=== PATIENT | male | born 1990 | race Two or more races ===

== ENCOUNTER 2024-10-31 22:13 | Emergency (ER) | payer MEDICARE, MEDICAID, SELFPAY ==
[2024-10-31 22:21] VITALS: BP 125/77; PULSE 77; TEMP 37.1; O2SAT 96; BMI 35.7
--- NOTE | 2024-10-31 22:49 | ED_ITS ---
HPI - Abdominal Pain General Chief Complaint: Abdominal Pain Stated Complaint: ABD PAIN Time Seen by Provider: 10/31/24 22:14 Source: patient Mode of arrival: walk-in Limitations: no limitations History of Present Illness HPI narrative: This 34-year-old male presents for evaluation of intermittent sharp stabbing pain in his left upper quadrant of his abdomen that at times goes into his back. He states it hurts somewhat when he takes a deep breath. He denies any nausea. He states he had some bloody diarrhea several days ago because he is lactose intolerant and ate something with milk in it. He also thinks he is developing allergies to wheat and corn. He has not had any fever or cough. He denies any chest pain or shortness of breath. He does admit to tobacco use. He has no lower extremity pain or swelling. He denies any history of alcohol use. He has a history of schizophrenia but denies he has been in any new or different medications since 2014. Related Data Home Medications ?Medication ?Instructions ?Recorded ?Confirmed aripiprazole lauroxil 1,064 mg/3.9 1,064 mg IM .1 every 2 months 10/31/24 10/31/24 mL suspension,ext.rel IM syringe (Aristada) benztropine 1 mg tablet 1 mg PO .HS 10/31/24 10/31/24 divalproex 500 mg tablet,delayed 500 mg PO .HS 10/31/24 10/31/24 release risperidone 1 mg tablet 1 mg PO DAILY 10/31/24 10/31/24 Allergies Allergy/AdvReac Type Severity Reaction Status Date / Time antibiotics Allergy rectal Uncoded 10/31/24 22:27 bleeding propanalo Allergy Hives Uncoded 10/31/24 22:26 Review of Systems ROS Status of ROS 10 or more systems reviewed and unremark able except as noted in history and below PFSH PFSH Social History Little interest or pleasure in doing things: not at all Feeling down, depressed, or hopeless: not at all Exam Narrative Exam Narrative: Vital signs and Nursing Notes reviewed: Patient is afebrile with a normal pulse, normal blood pressure, he is not hypoxic with pulse ox of 96% on room air General: Awake, alert, oriented, no acute distress, lying comfortably on the stretcher, he moves easily about the stretcher with no sign of distress HEENT: Normocephalic atraumatic, mucous membranes are moist and pink, eyes are clear, normal conjunctiva, vision is grossly intact, posterior pharynx is normal in appearance, no scleral icterus Neck: Supple, no meningeal signs, no anterior or posterior cervical lymphadenopathy Chest: Lungs are clear to auscultation with good air entry, there is no wheezing rhonchi or rales appreciated no accessory muscle use, patient is speaking in complete sentences-no chest wall tenderness to palpation CVS: Regular rate and rhythm S1-S2, no murmurs rubs or gallops, pulses are brisk and equal bilaterally ABD: Soft, nondistended, nontender, no rebound guarding or rigidity, bowel sounds are normal, no pulsatile masses appreciated, I am unable to appreciate any tenderness to deep palpation in the epigastrium, right upper quadrant or lef t upper quadrant. Left lower quadrant is also nontender. No pulsatile masses appreciated Extremities: Moving all extremities, no lower extremity tenderness or swelling noted, negative Homans' sign, pulses are brisk and equal bilaterally Skin: Normal in appearance without rash,pallor, petechiae or purpura Neuro: No focal deficits Constitutional Vital Signs, click to edit/add: Last Vital Signs Temp 98.8 F 10/31/24 22:21 Pulse 77 10/31/24 22:21 Resp 16 10/31/24 22:21 BP 125/77 10/31/24 22:21 Pulse Ox 96 10/31/24 22:21 O2 Del Method Room Air 10/31/24 22:21 Course Vital Signs Vital signs: Vital Signs Temperature 98.8 F 10/31/24 22:21 Pulse Rate 77 10/31/24 22:21 Respiratory Rate 16 10/31/24 22:21 Blood Pressure 125/77 10/31/24 22:21 Pulse Oximetry 96 10/31/24 22:21 Oxygen Delivery Method Room Air 10/31/24 22:21 Temperature 98.8 F 10/31/24 22:21 Pulse Rate 77 10/31/24 22:21 Respiratory Rate 16 10/31/24 22:21 Blood Pressure 125/77 10/31/24 22:21 Pulse Oximetry 96 10/31/24 22:21 Oxygen Delivery Method Room Air 10/31/24 22:21 MDM - Abdominal Pain MDM Narrative Medical decision making narrative: This 34-year-old male with history of schizophrenia who has not been on any new medications recently presents for evaluation of left upper quadrant abdominal pain that radiates into his left back at times with a dull aching sensation in his back and intermittent sharp stabbing pain in the left upper quadrant. This is not associated with any nausea vomiting or diarrhea. He has not had a fever. He denies any chest pain or shortness of breath. He did state that at times the pain is worse with deep breathing and the patient is a smoker so a D-dimer as well as workup for abdominal pain was ordered. His D-dimer is normal. He has a normal white count and hemoglobin. Electrolytes are normal. Liver function test and lipase are all normal. D-dimer is normal. CT scan of the abdomen pelvis with IV contrast was ordered and is included in the body of this report. The CT scan does not show any acute findings. Does show some mild diverticulosis but no diverticulitis. No bowel obstruction. Fat containing umbilical hernia. The patient was given a copy of the report. I suggested that he follow-up closely with his family physician as they may want to do a colonoscopy if he continues to had pain but the patient states that he had a colonoscopy a couple weeks ago and that was normal. At this point, with normal labs, normal CT scan and normal colonoscopy I explained to him that he may be having some degree of stool retention in his left upper quadrant and/or bowel spasms. He will be discharged home with a prescription for Colace and Bentyl. Medical Records Medical records narrative: [place] [address] CT Scan Report Signed Patient: ALY HINOJOSA MR#: [id number] : 1990 Acct:[id number] Age/Sex: 34 / M ADM Date: 10/31/24 Loc: ER Attending Dr: Ordering Physician: Mounika Jonas Date of Service: 10/31/24 Procedure(s): CT abdomen pelvis w con Accession Number(s): [id number] cc: ERIC SAMUEL ~ [facility] [place] [address] Patient Name: ALY HINOJOSA MRN: [id number] date: 1990 Sex: M Assigned Patient Location: ER Current Patient Location: ER Accession/Order Number: [id number] Exam Date: 10/31/2024 23:59 Report Date: 11/01/2024 01:14 At the request of: MOUNIKA MARKER Procedure: CT abdomen pelvis w con EXAM: CT abdomen pelvis w con HISTORY: Sharp LUQ abd pain , worse with eating. COMPARISON: CT abdomen pelvis, 03/17/2012. TECHNIQUE: IV contrast enhanced CT imaging of the abdomen and pelvis was performed using 100 mL of Omnipaque 300 intravenous contrast. Sagittal and coronal reconstructions are provided. Dose reduction techniques were achieved by using automated exposure control and/or adjustment of mA and/or kV according to patient size and/or use of iterative reconstruction technique. FINDINGS: CT ABDOMEN: There is mild dependent atelectasis in the posterior lower lobes. The lung bases are otherwise clear. The imaged heart is unremarkable. The liver, gallbladder, pancreas, spleen, adrenal glands, kidneys, stomach, small bowel, aorta and IVC appear within normal limits. There is a small fat-containing umbilical hernia. CT PELVIS: There is a normal appendix on images 94 through 103. The pelvic small bowel bowel loops, prostate and urinary bladder are unremarkable. There is mild colonic diverticulosis, most prominent in the cecum. There are small fat-containing inguinal hernias, right larger than left. No inflammatory fat stranding, free fluid, loculated fluid or free air is seen in the abdomen or pelvis. Several noncalcified nodules are seen in the bilateral buttocks likely related to granulomas. Body wall soft tissues are otherwise unremarkable. No acute osseous abnormality or suspicious bony lesion is seen. CT/CT abdomen pelvis w con IMPRESSION: 1. No acute diagnostic abnormality in the abdomen or pelvis. No specific cause of left upper quadrant pain is identified. 2. Normal appendix. 3. Mild colonic diverticulosis. Electronically authenticated by: SHARRI VENCES Date: 11/01/2024 01:14 Lab Data Labs: Lab Results 10/31/24 Range/Units 23:10 WBC 8.2 (4.0-11.0) 10^3/uL RBC 5.06 (4.70-6.10) 10^6/uL Hgb 15.8 (14.0-18.0) g/dL Hct 46.3 (42.0-54.0) % MCV 91.5 (80.0-94.0) fL MCH 31.2 (25.9-34.0) pg MCHC 34.1 (29.9-35.2) g/dL RDW 12.0 (11.0-15.0) % Plt Count 181 (150-450) 10^3/uL MPV 11.5 (9.5-13.5) fL Neut % (Auto) 53.1 (43.0-75.0) % Lymph % (Auto) 34.3 (20.5-60.0) % [place] % (Auto) 10.3 (1.7-12.0) % Eos % (Auto) 1.8 (0.9-7.0) % Baso % (Auto) 0.4 (0.2-2.0) % Neut # (Auto) 4.4 (1.4-6.5) 10^3/uL Lymph # (Auto) 2.8 (1.2-3.8) 10^3/uL [place] # (Auto) 0.9 H (0.3-0.8) 10^3/uL Eos # (Auto) 0.2 (0.0-0.7) 10^3/uL Baso # (Auto) 0.0 (0.0-0.1) 10^3/uL Abs Immat Gran (auto) 0.01 (0.00-0.03) 10^3/uL Imm/Tot Granulo (auto) 0.1 (0.0-0.5) % D-Dimer 0.22 (<=0.59) mg/L FEU Sodium 138 (136-145) mmol/L Potassium 3.7 (3.5-5.1) mmol/L Chloride 105 (98-107) mmol/L Carbon Dioxide 26.3 (21.0-32.0) mmol/L Anion Gap 10.4 BUN 15.0 (7.0-18.0) mg/dL Creatinine 0.86 (0.70-1.30) mg/dL Est GFR ( Amer) >60 (>=60 mL/min/1.73m^2) Est GFR (Non-Af Amer) >60 (>=60 mL/min/1.73m^2) BUN/Creatinine Ratio 17.4 Glucose 129 H (74-106) mg/dL Calcium 8.8 (8.5-10.1) mg/dL Total Bilirubin 0.3 (0.2-1.0) mg/dL AST 14 L (15-37) U/L ALT 44 (16-63) U/L Alkaline Phosphatase 67 (46-116) U/L Total Protein 7.1 (6.4-8.2) g/dL Albumin 3.6 (3.4-5.0) g/dL Globulin 3.5 g/dL Albumin/Globulin Ratio 1.0 Lipase 43.0 (16.0-77.0) U/L Discharge Plan Discharge Chief Complaint: Abdominal Pain Clinical Impression: Abdominal pain Patient Disposition: Home, Self-Care Time of Disposition Decision: 01:28 Condition: Good Prescriptions / Home Meds: No Action Aristada 1,064 mg/3.9 mL suspension,extended rel syring 1,064 mg IM .1 every 2 months benztropine 1 mg tablet 1 mg PO .HS divalproex 500 mg tablet,delayed release (DR/EC) 500 mg PO .HS risperidone 1 mg tablet 1 mg PO DAILY Print Language: Marshallese Instructions: Abdominal Pain (ED) Referrals: ERIC SAMUEL [Primary Care Provider] - 1 week
[2024-10-31] MEDS: KETOROLAC TROMETHAMINE 30 MG/ML VIAL IVP (23:14)
[2024-10-31 23:30] LABS: Basophils Percent Auto 0.4 % (0.2-2.0); Eosinophils Absolute Auto 0.2 10^3/uL (0.0-0.7); Eosinophils Percent Auto 1.8 % (0.9-7.0); Hematocrit 46.3 % (42.0-54.0); Hemoglobin 15.8 g/dL (14.0-18.0); Immature Granulocytes Abs Auto 0.01 10^3/uL (0.00-0.03); Immature Granulocytes Pct Auto 0.1 % (0.0-0.5); Lymphocytes Absolute Auto 2.8 10^3/uL (1.2-3.8); Lymphocytes Percent Auto 34.3 % (20.5-60.0); Mean Corpuscular HGB Conc 34.1 g/dL (29.9-35.2); Mean Corpuscular Hemoglobin 31.2 pg (25.9-34.0); Mean Corpuscular Volume 91.5 fL (80.0-94.0); Mean Platelet Volume 11.5 fL (9.5-13.5); Monocytes Absolute Auto 0.9 10^3/uL (0.3-0.8); Monocytes Percent Auto 10.3 % (1.7-12.0); Neutrophils Absolute Auto 4.4 10^3/uL (1.4-6.5); Neutrophils Percent Auto 53.1 % (43.0-75.0); Platelet Count 181 10^3/uL (150-450); Red Blood Count 5.06 10^6/uL (4.70-6.10); White Blood Count 8.2 10^3/uL (4.0-11.0)
[2024-10-31 23:44] LABS: D Dimer 0.22 mg/L FEU (<=0.59)
[2024-10-31 23:47] LABS: Alanine Aminotransferase 44 U/L (16-63); Albumin Level 3.6 g/dL (3.4-5.0); Alkaline Phosphatase 67 U/L (46-116); Anion Gap 10.4; Aspartate Amino Transferase 14 U/L (15-37); BUN Creatinine Ratio 17.4; Bilirubin Total 0.3 mg/dL (0.2-1.0); Calcium 8.8 mg/dL (8.5-10.1); Carbon Dioxide 26.3 mmol/L (21.0-32.0); Chloride 105 mmol/L (98-107); Estimated GFR (African America >60 (>=60 mL/min/1.73m^2); Estimated GFR (Non-African Ame >60 (>=60 mL/min/1.73m^2); Globulin 3.5 g/dL; Glucose 129 mg/dL (74-106); Potassium 3.7 mmol/L (3.5-5.1); Sodium 138 mmol/L (136-145); Total Protein 7.1 g/dL (6.4-8.2)
--- NOTE | 2024-10-31 23:48 | CT_ITS ---
The [address] [address] Patient Name: ALY HINOJOSA MRN: [id number] date: 1990 Sex: M Assigned Patient Location: ER Current Patient Location: ER Accession/Order Number: [id number] Exam Date: 10/31/2024 23:59 Report Date: 11/01/2024 01:14 At the request of: PARKER MARKER Procedure: CT abdomen pelvis w con EXAM: CT abdomen pelvis w con HISTORY: Sharp LUQ abd pain , worse with eating. COMPARISON: CT abdomen pelvis, 03/17/2012. TECHNIQUE: IV contrast enhanced CT imaging of the abdomen and pelvis was performed using 100 mL of Omnipaque 300 intravenous contrast. Sagittal and coronal reconstructions are provided. Dose reduction techniques were achieved by using automated exposure control and/or adjustment of mA and/or kV according to patient size and/or use of iterative reconstruction technique. FINDINGS: CT ABDOMEN: There is mild dependent atelectasis in the posterior lower lobes. The lung bases are otherwise clear. The imaged heart is unremarkable. The liver, gallbladder, pancreas, spleen, adrenal glands, kidneys, stomach, small bowel, aorta and IVC appear within normal limits. There is a small fat-containing umbilical hernia. CT PELVIS: There is a normal appendix on images 94 through 103. The pelvic small bowel bowel loops, prostate and urinary bladder are unremarkable. There is mild colonic diverticulosis, most prominent in the cecum. There are small fat-containing inguinal hernias, right larger than left. No inflammatory fat stranding, free fluid, loculated fluid or free air is seen in the abdomen or pelvis. Several noncalcified nodules are seen in the bilateral buttocks likely related to granulomas. Body wall soft tissues are otherwise unremarkable. No acute osseous abnormality or suspicious bony lesion is seen. CT/CT abdomen pelvis w con IMPRESSION: 1. No acute diagnostic abnormality in the abdomen or pelvis. No specific cause of left upper quadrant pain is identified. 2. Normal appendix. 3. Mild colonic diverticulosis. Electronically authenticated by: SHARRI VENCES Date: 11/01/2024 01:14
[2024-11-01 01:38] VITALS: BP 112/72; PULSE 66; O2SAT 100
== END 2024-11-01 01:42 | disposition home or self-care (01) ==
PROVIDERS: Emergency Provider Emergency Medicine; PCP Family Medicine
DX: R10.12 Left upper quadrant pain (principal); F20.9 Schizophrenia, unspecified; F17.200 Nicotine dependence, unspecified, uncomplicated; K42.9 Umbilical hernia without obstruction or gangrene; K57.30 Diverticulosis of large intestine without perforation or abscess without bleeding
CPT/HCPCS: 36415; 74177; 80053; 81001; 83690; 85025; 85378; 96374; 99284; J1885; Q9967